=== PATIENT | male | born 2000 | race Two or more races ===

== ENCOUNTER 2023-01-29 03:11 | Emergency (ER) | payer MEDICAID ==
[~2023-01-29] VITALS: Ht 162.6 cm; Wt 56.2 kg
[2023-01-29 03:24] VITALS: BP 140/99; PULSE 103; RESP 15; TEMP 98.5
[2023-01-29] MEDS ORDERED: LIDOCAINE 1% 10 ML VIAL ONE (03:25)
[2023-01-29] MEDS ORDERED: LIDOCAINE 1% 10 ML VIAL PERC ONE (03:30)
[2023-01-29] MEDS ORDERED: PERTUSS(ACELL),DIPH,TET VAC/PF 0.5 ML SYRINGE IM. ONE (04:15)
[2023-01-29] MEDS ORDERED: CEPHALEXIN MONOHYDRATE 500 MG CAPSULE PO ONE (04:15)
[2023-01-29] MEDS ORDERED: BACITRACIN 0.9 GM PACKET OINTMENT TP ONE (04:45)
[2023-01-29] MEDS ORDERED: CEPH-558 PO (05:27)
== END 2023-01-29 05:40 | disposition home or self-care (01) ==
LOC: EMS 03:17
DX: S61.411A Laceration without foreign body of right hand, initial encounter (principal); W26.8XXA Contact with other sharp object(s), not elsewhere classified, initial encounter; Y93.89 Activity, other specified; Y92.89 Other specified places as the place of occurrence of the external cause; Y99.8 Other external cause status
CPT/HCPCS: 99283; 90715; 90471; 12002; J3490; 12042; 99284

== ENCOUNTER 2023-02-07 17:42 | Emergency (ER) | payer MEDICAID ==
[~2023-02-07] VITALS: Ht 154.9 cm; Wt 61.4 kg
[~2023-02-07 17:42] MED LIST: CEPH-558 PO
[2023-02-07 17:51] VITALS: BP 157/93; PULSE 65; RESP 18; TEMP 98.2
== END 2023-02-07 18:55 | disposition home or self-care (01) ==
LOC: EMS 18:13
DX: S61.411D Laceration without foreign body of right hand, subsequent encounter (principal); Z48.02 Encounter for removal of sutures; X58.XXXD Exposure to other specified factors, subsequent encounter
CPT/HCPCS: 99281; Z7502